=== PATIENT | female | born 1985 | race Caucasian/White ===

== ENCOUNTER 2022-12-03 09:48 | Emergency (ER) | payer SELFPAY ==
[2022-12-03 09:54] VITALS: BP 116/81; PULSE 61; RESP 16; TEMP 36.8; O2SAT 98
--- NOTE | 2022-12-03 10:27 | CRLHL7_ITS ---
For Patients: As a result of the Century Cures Act, medical imaging exams and procedure reports are released immediately into your electronic medical record. You may view this report before your referring provider. If you have questions, please contact your health care provider. Indication: Cough Technique: Chest 1 view Comparison: Chest x-ray 08/06/2016 Findings/Impression: Cardiovascular and mediastinum: Heart size and vasculature are normal in caliber and appearance. Lungs and pleural space: Lungs are clear. No sign of infiltrate or mass. No sign of pleural effusion. No pneumothorax. Bones and soft tissues: No acute findings. Dictated by Juan A Kim MD @ 12/03/2022 11:58:02 AM (Electronically Signed)
[2022-12-03 10:46] LABS: PCR FLU A Negative PCR FLU A (Negative); PCR FLU B Negative PCR FLU B (Negative); PCR RSV Negative PCR RSV (Negative)
[2022-12-03 10:48] LABS: SARS PCR* Negative SARS-CoV-2 (Negative)
[2022-12-03 11:23] VITALS: BP 124/79; PULSE 89; RESP 16; TEMP 36.5; O2SAT 98
--- NOTE | 2022-12-03 12:44 | ED_ITS ---
HPI - General Adult General Date Seen: 12/03/22 Chief complaint: Cough Stated complaint: Cough, chest pain Time Seen by Provider: 12/03/22 10:08 Source: patient History of Present Illness HPI narrative: Patient is a 37-year-old woman who presents for evaluation of sore throat, cough, low-grade fever for the past 1 and half days. Symptoms started Wednesday evening and she took a home COVID test at that time which was negative. She presents to the ER on for evaluation. She has had a sore throat and now she is losing her voice. She has a bad cough, is coughing up some phlegm. She has pain in her chest when she coughs, otherwise does not have chest pain. No pleuritic pain. She feels short of breath after of bad coughing jag but otherwise is not short of breath. She works at a [employer], so she has taken today off, wondering when she should go back to work. She does smoke although she is trying to cut down. Related Data Home Medications Medication Instructions Recorded Confirmed lidocaine 4 %-methyl salicylate 16 patch topical QDAY 07/01/22 08/13/22 %-menthol 2 % topical patch Previous Rx's Medication Instructions Recorded albuterol sulfate 90 mcg/actuation 2 puff inhalation Q6H PRN 07/02/22 aerosol inhaler shortness of breath or wheezing #6.7 grams bupropion HCl 300 mg 24 hr tablet, 300 mg PO QAM #90 tabs 07/02/22 extended release ibuprofen 600 mg tablet 600 mg PO Q8H PRN pain #60 tabs 07/02/22 tizanidine 4 mg capsule 4 mg PO BID PRN muscle spasticity 07/02/22 #30 caps trazodone 100 mg tablet 50 - 150 mg PO .QHS PRN sleep #45 08/03/22 tabs diclofenac sodium 75 mg 75 mg PO BID #180 tabs 08/13/22 tablet,delayed release duloxetine 60 mg capsule,delayed 60 mg PO QDAY #90 caps 08/13/22 release (Cymbalta) Allergies Allergy/AdvReac Type Severity Reaction Status Date / Time zolpidem [From Ambien] Allergy Intermediate Itching Verified 08/13/22 09:11 Review of Systems Status of ROS: Reports: 10 or more systems reviewed and unremarkable except as noted in History and below PFSH PFSH Medical History Alcohol dependence in remission (12/30/18) Anxiety Asthma Borderline personality disorder (11/24/18) Constipation Depression Insomnia Nicotine dependence (12/30/18) Pain of right upper extremity Surgical History History of appendectomy (02/2019) History of tubal ligation (05/2013) Status post laparoscopic hysterectomy (12/2019) Family History Maternal Grandfather Stroke Heart disease Father Heart disease Social History Narrative: single, 2 kids, smoker, social ETOH, [employer]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 In general, an alert, well-appearing patient. Head: Normocephalic, atraumatic. Eyes: Pupils are equal reactive. Extraocular movements are full. Conjunctivae are normal. ENT: Mucous membranes are moist. Throat is normal. Neck: Supple without lymphadenopathy. Heart: Regular rate and rhythm. No murmur or rub. Lungs: Clear bilaterally. No increased work of breathing, crackles or wheezes. Cough is bronchospastic. Extremities: Well perfused. Neurologic: Patient is alert and oriented to person and place. Speech is fluent. Face is symmetric. Moves all extremities equally. Affect: Normal. Skin: Warm and dry. Well perfused. Const: Vital Signs, click to edit/add: Vital Signs - 24 hr 12/03/22 09:54 12/03/22 11:23 Temperature 98.2 F 97.7 F Pulse Rate [Pulse Oximeter] 61 89 Respiratory Rate 16 16 Blood Pressure [Ri ght Upper Arm] 116/81 124/79 Pulse Oximetry 98 98 Oxygen Delivery Me thod Room Air Room Air Documenting provider has reviewed patient's vital signs: yes Course Course Hospital Course: A COVID, flu and influenza swab here was negative. Discussed that that does not entirely rule out COVID as early tests can be false negative. I did a chest x- ray which by my review was negative. Final radiology review is likewise negative. She does have some bronchospasm on exam and I think might benefit fr om prednisone and albuterol. Discussed that I do not see a clear indication here for antibiotics. She would like to stay home from work tomorrow so I have given her note to stay home today and tomorrow. I think as long she is wearing a mask and washing her hands that she could return after that assuming a COVID test does not turn positive in the interim. Return for worsening shortness of breath new symptoms such as fever, or other worsening symptoms. Otherwise, follow up with primary care if no improvement over the next 7-10 days. Vital Signs Vital signs: Initial Vital Signs Temperature 98.2 F 12/03/22 09:54 Temperature Source Temporal Artery Scan 12/03/22 09:54 Pulse Rate 61 12/03/22 09:54 Pulse Rhythm 12/03/22 09:54 Respiratory Rate 16 12/03/22 09:54 Blood Pressure 116/81 12/03/22 09:54 Blood Pressure Mean 92 12/03/22 09:54 Blood Pressure Position Sitting 12/03/22 09:54 Pulse Oximetry 98 12/03/22 09:54 Oxygen Delivery Method 12/03/22 09:54 Vital Signs Temperature 98.2 F 12/03/22 09:54 Pulse Rate 61 12/03/22 09:54 Respiratory Rate 16 12/03/22 09:54 Blood Pressure 116/81 12/03/22 09:54 Pulse Oximetry 98 12/03/22 09:54 Oxygen Delivery Method 12/03/22 09:54 Temperature 97.7 F 12/03/22 11:23 Pulse Rate 89 12/03/22 11:23 Respiratory Rate 16 12/03/22 11:23 Blood Pressure 124/79 12/03/22 11:23 Pulse Oximetry 98 12/03/22 11:23 Oxygen Delivery Method 12/03/22 11:23 Medical Decision Making Lab Data Labs: Lab Results 12/03/22 Range/Units 10:00 SARS-CoV-2 (PCR) Negative SARS-CoV-2 (Negative) Influenza Type A (PCR) Negative PCR FLU A (Negative) Influenza Type B (PCR) Negative PCR FLU B (Negative) RSV (PCR) Negative PCR RSV (Negative) Discharge Plan Discharge Clinical Impression: Bronchitis Patient Disposition: Home, Self-Care Condition: Stable Instructions: Acute Bronchitis (ED) Additional Instructions: Medications as prescribed. Return for worsening shortness of breath, high fevers, or other significant changes. Follow up p.r.n. with primary care if not improving over the next couple of weeks. Minimize smoking as much as possible. Prescriptions: No Action lidocaine-methyl harpal-menthol 4-16-2 % adhesive patch,medicated topical QDAY albuterol sulfate 90 mcg/actuation HFA aerosol inhaler 2 puff inhalation Q6H PRN (Reason: shortness of breath or wheezing) Qty: 6.7 3RF ibuprofen 600 mg tablet 600 mg PO Q8H PRN (Reason: pain) Qty: 60 0RF tizanidine 4 mg capsule 4 mg PO BID PRN (Reason: muscle spasticity) Qty: 30 1RF diclofenac sodium 75 mg tablet,delayed release (DR/EC) 75 mg PO BID Qty: 180 1RF duloxetine [Cymbalta] 60 mg capsule,delayed release(DR/EC) 60 mg PO QDAY Qty: 90 1RF bupropion HCl 300 mg tablet extended release 24 hr 300 mg PO QAM Qty: 90 1RF trazodone 100 mg tablet 50 - 150 mg PO .QHS PRN (Reason: sleep) Qty: 45 0RF Follow Up/Referrals: Jose Angel Glover MD [Primary Care Provider] - Stand Alone Forms: [employer] Info Instructions
== END 2022-12-03 11:25 | disposition home or self-care (01) ==
PROVIDERS: Emergency Provider Emergency Medicine; PCP Family Medicine
DX: J40 Bronchitis, not specified as acute or chronic (principal)
CPT/HCPCS: 71045; 87502; 87634; 87635; 99283; 99284

== ENCOUNTER 2025-01-09 20:30 | Emergency (ER) | payer OTHER, SELFPAY ==
[2025-01-09] VITALS (22 sets, daily range): BP systolic 105–114; BP diastolic 66–81; PULSE 90–120; RESP 20; TEMP 36; O2SAT 97–100
--- OUTSIDE RECORDS SUMMARY | 2025-01-09 20:33 | XMS_ITS | Clinical Summary ---
Author Organization [facility] Address [address] [place] [id number] Care Team Providers Care Job Spotter Name Role Phone Jose Angel Glover MD Primary Care Provider + Allergies Active Allergy Reactions Criticality Noted Date Comments Zolpidem Itching 10/07/2020 Medications acetaminophen (TYLENOL EXTRA STRENGTH) 500 mg tabletIndication s:headache disorder Take 1,000 mg by mouth every 6 hours if needed. Max acetaminophen dose: 4000mg in 24 hrs. Indications: head pain 12/02/19 11 Active levonorgestrel intrauterine device (MIRENA) 20 mcg/24 hr IUD Inject 1 Device intrauterine. 1 Device 0 10/28/19 16 Active ibuprofen (ADVIL; MOTRIN) 200 mg tablet Take 400 mg by mouth 4 times daily if needed. Active FLUoxetine (PROZAC) 40 mg capsule Take 40 mg by mouth once daily. 1 01/01/20 19 Active traMADol (ULTRAM) 50 mg tabletIndication s:Pelvic pain,Lower abdominal pain Take 1 tablet by mouth every 6 hours if needed for Pain. 8 tablet 06/16/20 19 Active codeine-guaiFENe sin (ROBITUSSIN AC) 10-100 mg/5 mL liquidIndication s:Bronchitis Take 10 mL by mouth every 6 hours if needed for Cough. Max dose 60 mL per 24 hrs. 120 mL 09/12/20 19 Active bupropion HCl (WELLBUTRIN ORAL) Take by mouth. Activ e naproxen sodium (ALEVE ORAL) Take by mouth. Ac tive fluticasone (50 mcg per actuation) nasal solution (FLONASE)Indicat ions:Otalgia, unspecified laterality Inhale 1 Leon into affected nostril(s) once daily. 16 g 12/11/19 24 Active ibuprofen (ADVIL; MOTRIN) 600 mg tabletIndication s:Otalgia, unspecified laterality Take 1 Tablet (600 mg) by mouth every 6 hours if needed for Pain. Maximum of 3200 mg in 24 hours. 30 Tablet 12/11/19 24 Active meclizine (ANTIVERT) 25 mg tabletIndication s:Benign paroxysmal positional vertigo, unspecified laterality Take 1 Tablet (25 mg) by mouth 3 times daily if needed for Vertigo or Nausea/Vomiting. 15 Tablet 09/06/20 24 Active Hospital, Clinic, or Other Facility Administered Medication Ordered Dose Route Frequency Start Date End Date Status levonorgestrel intrauterine device 1 Device (MIRENA)Indications:Encounter for IUD removal and reinsertion 1 Device IU Q 5 YEARS 10/28/2015 Active Active Problems Problem Noted Date Diagnosed Date Uterine leiomyoma 04/27/2019 Pelvic pain in female 04/27/2019 Pelvic floor instability 04/27/2019 Acute appendicitis 03/16/2019 Alcohol dependence in remission 12/30/2018 Nicotine dependence 12/30/2018 Borderline personality disorder 11/24/2018 IUD (intrauterine device) in place 10/28/2015 Overview (10/28/2015): cristian, hortencia in 5 yrs Depression 08/02/2015 Anxiety 08/02/2015 Resolved Problems Problem Noted Date Diagnosed Date Resolved Date Presence of intrauterine contraceptive device 10/28/19 16 03/16/2019 Overview (03/16/2019): Overview: Overview: hortencia foster in 5 yrs Pyelonephritis complicating 12/31/2010 05/11/2013 Supervision of other normal 12/31/2010 05/06/2011 Immunizations Immunization Administration Dates Next Due DTP 06/14/1992, 9,05/12/1988,03/23,01/21/1988 HIB PRP-OMP (PedvaxHIB) 07/18/1990,06/29,05/12/1988,03/23,01/21/1988 Hepatitis A (Peds) 06/23/2002,06/02/2000 Hepatitis B (Peds) 02/09/2001,06/02/2000, 000 Hepatitis B, Unspecified 02/09/2001,06/02/2000,0 04/29/2000 INFLUENZA, IIV3 PF (AGE >= 6 MO) 09/22/2011 Influenza Virus, Unspecified 10/08/2015 Influenza, IIV3 (Age >=3 years) 09/22/2011 Influenza, IIV4 07/22/2023,,10/02/2020,06/29,10/08/2015 MENINGOCOCCAL VACCINE 2 VIAL 2MO-55YO (MENVEO) 10/24/2015 MMR 06/14/1992,03/10/1989 Oral Polio Vaccine 06/14/1992, 9,03/23/1988,01/20 Polio Virus, Unspecified 06/14/1992,06/18,03/23/1988,01/20 TD, UNSPECIFIED 06/23/2002 Td (Age >=7 Years) 06/23/2002 Tdap 02/03/2023,03/21/2012 Tuberculin (PPD) 06/10/2016,07/20/1990 Family History Medical History Relation Name Comments Heart Disease Maternal Grandfather Pacema ker Age 71 Other Maternal Grandfather GA Diabetes Maternal Uncle Cancer Paternal Grandfather throat Diabetes Paternal Grandfather Relation Name Status Comments Brother Alive Daughter Alive Father Alive Maternal Grandfather Alive Maternal Grandmother Alive Maternal Uncle Mother Alive Paternal Grandfather Paternal Grandmother Alive Sister Alive x2 Social History Tobacco Use Types Packs/Day Years Used Date Smoking Tobacco: Some Days Cigarettes Last attempted to quit: 08/02/2015 Smokeless Tobacco: Never Tobacco Cessation:Counseling Given: Yes Comments:one pack of cigarettes per month - recently started up again Alcohol Use Standard Drinks/Week Comments No 0 (1 standard drink = 0.6 oz pur e alcohol) Interpersonal Safety Answer Date Record ed Are you being hit, kicked, p ushed or yelled at (see row info)? No 09/06/2024 Interpersonal Safety Abuse 12 - 18 Not on file 09/06/2024 Interpersonal Safety Ambulatory Vulnerability No t on file 09/06/2024 Comments No Sex and Gender Information Value Date Recorded Sex Assigned at Not on file Legal Sex Female 5:45 AM [employer] Gender Identity Not on file Sexual Orientation Not on file Occupation Industry Job Start Date Job End Date home Not on file Not on file Not on file Obstetrics History Para Term AB IAB SAB Ectopic Multiple Livin g Live Births 3 2 2 0 1 0 0 0 0 2 2 Date Outcome GA Total Labor Labor/2nd/3rd Weight Sex Type Anes PTL Dior A1 A5 Name Clin 2005 Term 38w 0d 3.32 kg (7 lb 5 oz) F Vag-V acuum Epidur al N Livin g Jasmyne McInt yre Delivery Location:[facility] 2009 AB 10w 0d 3.15 kg (6 lb 15 oz) M McInt yre Delivery Location:[facility] 2010 Term 38w 1d 3.15 kg (6 lb 15 oz) M Vag Epidur al N Livin g 8 9 Chadwick McInt yre Delivery Location:[facility] Comments:System Genera perri. Please review and update details. Last Filed Vital Signs Vital Sign Reading Time Taken Comments Blood Pressure 114/81 09/06/2024 5:45 AM [employer] Pulse 75 09/06/2024 5:45 AM [employer] Temperature 36.8 C (98.2 F) 09/06/2024 4:03 AM [employer] Respiratory Rate 14 09/06/2024 5:45 AM [employer] Oxygen Saturation 100% 09/06/2024 5:45 AM [employer] Inhaled Oxygen Concentration - - Weight 69.6 kg (153 lb 7 oz) 09/06/2024 4:03 AM [employer] Height 149.9 cm (4' 11) 09/06/2024 4:03 AM [employer] Body Mass Index 30.99 09/06/2024 4:03 AM [employer] Plan of Treatment Health Maintenance Due Date Last Done Comments Hepatitis C screening for ag e 18-79 2005 Pneumococcal series for age 6-49 (1 of 2 - PCV) 2006 Pap test for age 21-65 03/21/2015 2, 05/06/2011, 05/06/2011, Additional history exists BMI (ht and wt on same day) for age 18+ 12/26/2016 12/27/2015, 10/24/2015 Depression screening for age 12+ 07/28/2017 07/28/2016, 01/07/2016, 10/24/2015 COVID-19 vaccine series ( season) 2024 12/04/2020, 11/11/2020 Influenza Vaccine (#1) 2024 , 08/13/2022, 10/02/2020, Additional history exists Tetanus booster 02/03/2033 02/03/2023, 0601/2012, 06/23/2002, Additional history exists HIV for age 15-65 Completed 03/20/2010 Tdap Completed 02/03/2023, 03/21/2012 Procedures Procedure Name Priority Date/Time Associated Diagnosis Comments SUPERVISOR TELEPHONE ANSWERING SERVICE THIN PREP PAP SCREEN IMAGED Routine 03/21/2012 10:58 AM CDT Screening for malignant neoplasm of the cervix ANTI HIV 1/2 Routine 03/20/2010 10:31 AM CDT Supervision of other normal (HC) from Last 3 Months or Most Recently Relevant to Health Maintenance Results * SUPERVISOR TELEPHONE ANSWERING SERVICE THIN PREP PAP SCREEN IMAGED (03/21/2012 10:58 AM CDT) CYTOLOGY CYTOPATHOLOGY REPORT [facility] Status: Final Status [id number] CLINICAL INFORMATION Last Date of LMP :03/16/2012 Last Pap Date :05/06/2011 Last Pap Result :ASCUS ABN [place]/Bx Past 5 YRS :None Hormone Usage :IUD Menstrual Status :Irregular Periods [place]/Bx done today :No Additional Information :None given HPV Request :HPV if ASCUS SPECIMEN SOURCE :Cervical/vaginal ThinPrep Vial, screening SPECIMEN ADEQUACY :Satisfactory for evaluation Endocervical component present. INTERPRETATION/RES ULT Negative for intraepithelial lesion or malignancy (NIL) Cytology 1st Screener :lgb Cytology 2nd Screener :lianet Signed by :lianet This specimen was screened by the FDA approved ThinPrep Imaging System and manually reviewed. NOTE: The Pap test is a screening technique, not a diagnostic procedure. It is used primarily to screen for squamous cancers and precursor lesions. Published studies have shown that it is subject to both false negative and false positive results. The pap test should not be used as the sole means to diagnose or exclude pre-malignant and malignant lesions. COLLECTED:03/21/12 ACCESSIONED: 03/21/12 SIGNED: 03/28/12 [facility] PAP [place] CODE NIL [facility] Tissue specimen (specimen) (Cervical/Vagina l) 03/21/2012 10:58 AM CDT 03/21/2012 10:57 AM CDT us Jennifer Elias NP PATHOLOGY/CYTOLOGY Final Result [facility] INTERNAL ZIP [id number] [place] [id number] * ANTI HIV 1/2 (03/20/2010 10:31 AM CDT) ANTI HIV 1/2 Non-reacti ve [facility] Blood specimen (specimen) BLOOD SPECIMEN / Unknown 03/20/2010 10:31 AM CDT 03/20/2010 10:17 AM CDT us Jose Angel Glover MD SEND OUTS Final Re sult [facility] INTERNAL ZIP [id number] [address] from Last 3 Months or Most Recently Relevant to Health [place] [address] [employer] Advance Directives * Full Code (Latest Code Status on File) Date Activated Date Inactivated Comments 03/16/2019 2:06 PM 03/16/2019 8:15 PM Question Answer Comments Code Status Discussion: Not Discussed * Full Code Date Activated Date Inactivated Comments 02/22/2011 9:02 PM 02/22/2011 11:38 PM * Full Code Date Activated Date Inactivated Comments 12/30/2010 8:58 PM 01/01/2011 12:27 PM * Full Code Date Activated Date Inactivated Comments 12/02/2010 10:27 PM 12/03/2010 1:59 AM Care Teams Job Spotter Relationship Specialty Start Date End Date Jose Angel Glover MD [address] [place] [address] PCP - General Family Practice 10/07/20
--- NOTE | 2025-01-09 20:45 | ED_ITS ---
HPI - Syncope General Time Seen by Provider: 20:46 Date Seen: 01/09/25 Chief Complaint: Syncope/Fainted Stated Complaint: Passed out in shower Time Seen by Provider: 01/09/25 20:34 Source: patient, RN notes reviewed and old records reviewed Mode of arrival: ambulatory Limitations: no limitations History of Present Illness HPI narrative: This 39-year-old female is ambulatory into the ED of her own accord with complaint of syncope in the shower tonight, does have underlying vomiting illness. For about 24 hours she has been vomiting, has vomited at least 4 times. She has had a normal bowel movement in this time frame, no fevers or chills, no diarrhea, no blood in the vomitus. She states she has been trying to drink water, tried eat crackers, cannot keep anything down. She went to get into a hot shower tonight, started to see stars or spots, somewhat fell back on the wall of the shower and went down the shower wall. At mo she may have bumped her head but does not have any head pain, no headache. She was maybe out shortly, denies any injury. She is not having any abdominal pain with this. She works at [employer], there have been about 15 residence on quarantine with presumed norovirus like illness with these types of symptoms. No chance for as patient has had both history of a tubal ligation and then subsequent laparoscopic hysterectomy. She has also had a history of an appendectomy. She noted when she was doing some dry heaving in the shower, felt some burning chest heaviness with that but has no chest symptoms now. Related Data Previous Rx's ?Medication ?Instructions ?Recorded tizanidine 4 mg capsule 4 mg PO BID PRN muscle spasticity 10/04/23 #30 caps trazodone 100 mg tablet 50 - 150 mg (0.5 - 1.5 x 100 mg) 11/11/23 PO QHS PRN sleep #45 tabs bupropion HCl 150 mg 24 hr tablet, 150 mg PO QAM #90 tabs 06/16/24 extended release (Wellbutrin XL) duloxetine 30 mg capsule,delayed 30 mg PO QDAY #90 caps 06/16/24 release (Cymbalta) duloxetine 60 mg capsule,delayed 60 mg PO QDAY #90 caps 06/16/24 release (Cymbalta) lorazepam 1 mg tablet 0.5 - 1 mg (0.5 - 1 x 1 mg) PO 06/16/24 QDAY PRN anxiety #30 tabs albuterol sulfate 90 mcg/actuation 2 puff inhalation Q4-6H PRN 11/09/24 aerosol inhaler shortness of breath or wheezing #6.7 grams Allergies Allergy/AdvReac Type Severity Reaction Status Date / Time zolpidem (From Ambien) Allergy Intermediate Itching Verified 01/09/25 20:44 Review of Systems Status of ROS: Reports: 6 or more systems reviewed and unremarkable except as noted in History and below [facility] Medical History Generalized anxiety disorder ?F41.1 - Generalized anxiety disorder (ICD-10) Major depression, recurrent ?F33.9 - Major depressive disorder, recurrent, unspecified (ICD-10) Asthma ?J45.909 - Unspecified asthma, uncomplicated (ICD-10) Nicotine dependence (12/30/18) ?F17.200 - Nicotine dependence, unspecified, uncomplicated (ICD-10) Insomnia ?G47.00 - Insomnia, unspecified (ICD-10) Constipation ?K59.00 - Constipation, unspecified (ICD-10) Borderline personality disorder (11/24/18) ?F60.3 - Borderline personality disorder (ICD-10) Alcohol dependence in remission (12/30/18) ?F10.21 - Alcohol dependence, in remission (ICD-10) Surgical History Status post laparoscopic hysterectomy (12/2019) ?Z90.710 - Acquired absence of both cervix and uterus (ICD-10) History of tubal ligation (05/2013) ?Z98.51 - Tubal ligation status (ICD-10) History of appendectomy (02/2019) ?Z90.49 - Acquired absence of other specified parts of digestive tract (ICD- 10) Family History Maternal Grandfather Stroke Heart disease Father Heart disease Social History Narrative: single, 2 kids, smoker, social ETOH, PATIENT ACCOUNTING REPRESENTATIVE Problems where you live: no known problems In the past 12 months, utilities in danger of being shut off: yes In past 12 months, lack of transportation kept you from medical appts, meetings, work, or getting things needed for daily living: no In the past 12 mos, have been you worried that your food would run out before you had money to buy more?: often true In the past 12 mos, the food you bought just didn't last and you didn't have money to buy more?: sometimes true Smoking Status: Never smoker Do you use any of these nicotine containing products: None Second hand tobacco smoke exposure: No How often do you have a drink containing alcohol: never How often do you have six or more drinks on one occasion: Never AUDIT-C Alcohol total score: 0 Non-prescribed substance use: denies use How often does anyone, including family, friends and others, physically hurt you : never How often does anyone, including family, friends and others, insult or talk down to you: sometimes How often does anyone, including family, friends and others, threaten you with harm: never How often does anyone, including family, friends and others, scream or curse at you: rarely service: No Health Related Social Needs: food insecurity (Z59.41) and Other personal risk factors, not elsewhere classified (Z91.89) Exam Const: Vital Signs, click to edit/add: Vital Signs - 24 hr 01/09/25 20:38 01/09/25 21:11 01/09/25 21:12 Temperature 96.8 F L Pulse Rate 103 H 102 H Pulse Rate [Pulse Oximeter] 120 H Respiratory Rate 20 Blood Pressure 109/76 Blood Pressure [Ri ght Upper Arm] 114/81 Pulse Oximetry 98 98 97 Oxygen Delivery Me thod Room Air 01/09/25 21:15 01/09/25 21:16 01/09/25 21:30 Temperature Pulse Rate 99 100 104 H Pulse Rate [Pulse Oximeter] Respiratory Rate Blood Pressure 111/79 Blood Pressure [Ri ght Upper Arm] Pulse Oximetry 98 97 99 Oxygen Delivery Me thod 01/09/25 21:31 01/09/25 21:32 01/09/25 21:45 Temperature Pulse Rate 106 H 101 H 100 Pulse Rate [Pulse Oximeter] Respiratory Rate Blood Pressure 108/74 Blood Pressure [Ri ght Upper Arm] Pulse Oximetry 99 99 100 Oxygen Delivery Me thod 01/09/25 21:47 01/09/25 22:00 01/09/25 22:02 Temperature Pulse Rate 95 102 H 101 H Pulse Rate [Pulse Oximeter] Respiratory Rate Blood Pressure 112/66 109/81 Blood Pressure [Ri ght Upper Arm] Pulse Oximetry 99 99 99 Oxygen Delivery Me thod 01/09/25 22:03 01/09/25 22:15 01/09/25 22:16 Temperature Pulse Rate 101 H 95 94 Pulse Rate [Pulse Oximeter] Respiratory Rate Blood Pressure 105/70 Blood Pressure [Ri ght Upper Arm] Pulse Oximetry 99 100 100 Oxygen Delivery Me thod 01/09/25 22:30 01/09/25 22:31 01/09/25 22:45 Temperature Pulse Rate 93 92 94 Pulse Rate [Pulse Oximeter] Respiratory Rate Blood Pressure 105/66 Blood Pressure [Ri ght Upper Arm] Pulse Oximetry 100 100 98 Oxygen Delivery Me thod 01/09/25 22:49 01/09/25 23:00 Temperature Pulse Rate 101 H 90 Pulse Rate [Pulse Oximeter] Respiratory Rate Blood Pressure Blood Pressure [Ri ght Upper Arm] Pulse Oximetry 100 100 Oxygen Delivery Me thod This 39-year-old female is alert, interactive, no apparent distress. She did ambulate in on her own accord, she is tachycardic on arrival but after resting in bed her EKG shows a rate of 104. She looks pale but sclera clear come conjugate gaze. Oropharynx somewhat dry but lips normal, not cracked. No tenderness over her head, no visible or palpable traumatic change. Neck supple, no tenderness on palpation. No JVD. Lungs are clear, good air entry, no wheezing or crackles, no tachypnea, no accessory muscle use. CV slightly fast irregular, no murmur, normal S1-S2, no S3-S4. Abdomen is soft, nontender, nondistended, no organomegaly, rebound or guarding, normal bowel sounds. Skin visualized without rash. Documenting provider has reviewed patient's vital signs: yes Course Course ED Course: This 39-year-old female very likely had vasovagal syncope, history seems quite consistent with that. She likely has dehydration from having probable viral gastroenteritis. Will check baseline labs, give her L of IV fluids, give her 4 mg IV Zofran. Will have cardiac monitoring, pulse oximetry, EKG and point of care troponin done. There are no injuries at this time that seem to require any imaging. Do not feel head CT is necessary nor indicated, believe the radiation of this test outweighs any benefit that it would give us. Her history just seems to be so classic with vasovagal syncope with underlying gastroenteritis. Reevaluation(s) Time of Reevaluation #1: 21:57 Reevaluation #1: Patient is feeling a little better. Did review with her her normal initial point of care troponin, CBC and electrolytes. This episode in the shower happened about 7:30 p.m. tonight. Will do a follow-up troponin at 10:30 p.m.. Did review she has some nonspecific changes on her EKG. She is having no symptoms at this time. Would recommend that she talk to her primary care about this further. If her heart rate does come down, we may consider repeating the EKG to see if there is any rate dependence changes. Time of Reevaluation #2: 23:13 Reevaluation #2: Have reviewed patient's EKGs with her. The slower rate followup EKG has resolution of some of the T-wave changes. She maybe somebody that has rate dependent changes, I would not say this is definitively indicative of ischemia. Her follow-up troponin remained normal. She can review this further with her primary care provider which I have recommended she do. She actually does have anti nausea medicine at home but had forgot about it, declines Zofran from me. Vital Signs Vital signs: Initial Vital Signs Temperature 96.8 F L 01/09/25 20:38 Temperature Source Temporal Artery Scan 01/09/25 20:38 Pulse Rate 120 H 01/09/25 20:38 Respiratory Rate 20 01/09/25 20:38 Blood Pressure 114/81 01/09/25 20:38 Blood Pressure Mean 92 01/09/25 20:38 Pulse Oximetry 98 01/09/25 20:38 Oxygen Delivery Method Room Air 01/09/25 20:38 Vital Signs Temperature 96.8 F L 01/09/25 20:38 Pulse Rate 120 H 01/09/25 20:38 Respiratory Rate 20 01/09/25 20:38 Blood Pressure 114/81 01/09/25 20:38 Pulse Oximetry 98 01/09/25 20:38 Oxygen Delivery Method Room Air 01/09/25 20:38 Temperature 96.8 F L 01/09/25 20:38 Pulse Rate 90 01/09/25 23:00 Respiratory Rate 20 01/09/25 20:38 Blood Pressure 105/66 01/09/25 22:31 Pulse Oximetry 100 01/09/25 23:00 Oxygen Delivery Method Room Air 01/09/25 20:38 Medications Administered Medications: Discontinued Medications Generic Name Dose Route Start Last Admin Trade Name Freq PRN Reason Stop Dose Admin Sodium Chloride 1,000 mls @ 1,000 mls/hr 01/09/25 20:52 01/09/25 22:09 0.9 % Sodium Chloride 1000 Ml IV 01/09/25 21:51 Infused .Q1H TRUPTI Infusion Sodium Chloride 1,000 mls @ 1,000 mls/hr 01/09/25 22:00 01/09/25 22:12 0.9 % Sodium Chloride 1000 Ml IV 01/09/25 22:59 1,000 mls/hr .Q1H TRUPTI Administration Ondansetron HCl 4 mg 01/09/25 20:52 01/09/25 21:05 Ondansetron 2 Mg/Ml Inj IVP 01/09/25 20:53 4 mg ONCE ONE Administration MDM - Syncope Lab Data Attestation: I reviewed the patient's lab results. Labs: Lab Results 01/09/25 01/09/25 01/09/25 Range/Units 20:55 20:58 22:30 WBC 9.17 (4.50-11.00) K/uL RBC 4.87 (4.00-5.20) m/uL Hgb 14.9 (12.0-16.0) gm/dL Hct 43.1 (33.0-51.0) % MCV 89 (80-100) fL MCH 31 (26-34) pg MCHC 35 (32-36) gm/dL RDW Coeff of Leonor 11.8 (11.5-15.5) % Plt Count 253 (140-440) K/uL Neut % (Auto) 87.2 H (42.0-72.0) % Lymph % (Auto) 7.1 L (20-44) % [place] % (Auto) 3.9 (0.0-11.0) % Eos % (Auto) 0.8 (0.0-7.0) % Baso % (Auto) 0.1 (0.0-3.0) % Neut # (Auto) 8.00 H (1.7-7.0) K/uL Lymph # (Auto) 0.70 L (0.90-2.90) K/uL [place] # (Auto) 0.40 (0.00-0.90) K/UL Eos # (Auto) 0.07 (0.00-0.50) K/uL Baso # (Auto) 0.01 (0.00-0.30) K/uL Abs Immat Gran (auto) 0.08 (0.00-0.30) K/uL Imm/Tot Granulo (auto) 0.9 % Sodium 138 (135-149) mmol/L Potassium 3.7 (3.6-5.1) mmol/L Chloride 107 (96-114) mmol/L Carbon Dioxide 21 (20-32) mmol/L Anion Gap 10 (7-15) mEq/L BUN 17 (5-24) mg/dL Creatinine 0.6 (0.5-1.5) mg/dL Estimated GFR 118 ml/min Glucose 97 (60-115) mg/dL Lactate 0.9 (0.5-1.9) mmol/L Calcium 9.0 (8.4-10.6) mg/dL POC Troponin I 0.01 0.00 L (0.01-0.04) ng/ml ECG Data Attestation: I personally reviewed and interpreted this ECG as follows: (Sinus tachycardia, 104 beats per minute. Flipped T-waves V1 through V5 without any ST segment changes, flipped T-waves lead 3 as well.) ECG interpretation date: 01/09/25 ECG interpretation time: 20:56 Prior ECG tracings: not available for review Interpretation: Follow-up EKG at 10:25 p.m. showing sinus rhythm with sinus arrhythmia, 91 beats per minute. Flattened T-wave in lead 3, flipped T-waves in V1 V2 but no other T-wave abnormalities noted. There is certainly no ST segment changes. Seems to have shown great improvement with the EKG. Discharge Plan Discharge Clinical Impression: Vasovagal syncope, Viral gastroenteritis Patient Disposition: Home, Self-Care Condition: Stable Instructions: Syncope (ED), Gastroenteritis (ED) Additional Instructions: Use your nausea medicines at home as needed for control of these symptoms to allow you to take small frequent sips of fluids. As you are improving, can return back to normal diet. Do recommend staying out of work until you are not ill for 24 hours. If at any point there are concerns for worsening, not improving, new concerns with this illness, do recommend re-evaluation. Do recommend you follow-up in clinic within the next 1-2 weeks for review of this ED visit with your primary care provider. Activity Level: Activity as Tolerated Prescriptions: No Action trazodone 100 mg tablet 50 - 150 mg PO QHS PRN (Reason: sleep) Qty: 45 5RF bupropion HCl [Wellbutrin XL] 150 mg tablet extended release 24 hr 150 mg PO QAM Qty: 90 1RF duloxetine [Cymbalta] 30 mg capsule,delayed release(DR/EC) 30 mg PO QDAY Qty: 90 1RF duloxetine [Cymbalta] 60 mg capsule,delayed release(DR/EC) 60 mg PO QDAY Qty: 90 1RF lorazepam 1 mg tablet 0.5 - 1 mg PO QDAY PRN (Reason: anxiety) Qty: 30 1RF albuterol sulfate 90 mcg/actuation HFA aerosol inhaler 2 puff inhalation Q4-6H PRN (Reason: shortness of breath or wheezing) Qty: 6.7 0RF tizanidine 4 mg capsule 4 mg PO BID PRN (Reason: muscle spasticity) Qty: 30 1RF Follow Up/Referrals: Jose Angel Glover MD [Primary Care Provider] - Stand Alone Forms: Work/School Release, [facility] Info Instructions
[2025-01-09 21:04] LABS: Lactate* 0.9 mmol/L (0.5-1.9)
[2025-01-09 21:05] LABS: Basophils Absolute Auto 0.01 K/uL (0.00-0.30); Basophils Percent Auto 0.1 % (0.0-3.0); Eosinophils Absolute Auto 0.07 K/uL (0.00-0.50); Eosinophils Percent Auto 0.8 % (0.0-7.0); Hematocrit 43.1 % (33.0-51.0); Hemoglobin* 14.9 gm/dL (12.0-16.0); Immature Granulocytes Abs Auto 0.08 K/uL (0.00-0.30); Immature Granulocytes Pct Auto 0.9 %; Lymphocytes Percent Auto 7.1 % (20-44); Mean Corpuscular HGB Conc 35 gm/dL (32-36); Mean Corpuscular Hemoglobin 31 pg (26-34); Mean Corpuscular Volume 89 fL (80-100); Monocytes Percent Auto 3.9 % (0.0-11.0); Neutrophils Percent Auto 87.2 % (42.0-72.0); Platelet Count* 253 K/uL (140-440); RDW Coefficient of Variation % 11.8 % (11.5-15.5); Red Blood Count 4.87 m/uL (4.00-5.20); White Blood Count* 9.17 K/uL (4.50-11.00)
[2025-01-09] MEDS: 0.9 % SODIUM CHLORIDE 1000 ml 1,000 ML IV ×2 (21:05→22:12)
[2025-01-09] MEDS: ONDANSETRON 2 MG/ML inj 4 MG IVP (21:05)
--- OUTSIDE RECORDS SUMMARY | 2025-01-09 21:15 | XMS_ITS | Clinical Summary ---
Author Organization [employer] [facility] Address [address] [place] [address] Care Team Providers Care Wire Wrapping Machine Operator Name Role Phone Jose Angel Glover MD [...] solution (FLONASE)Indicat ions:Otalgia, unspecified laterality Inhale 1 [place] into affected nostril(s) once daily. 16 g [...] Pacema ker Age 73 Other Maternal Grandfather [place] Diabetes Maternal Uncle Cancer Paternal Grandfather throat [...] on file Legal Sex Female 5:45 AM LMFT Gender Identity Not on file Sexual Orientation [...] N Livin g Jasmyne McInt yre Delivery Location:[facility] 2009 AB 10w 0d 3.15 kg (6 lb 15 oz) M McInt yre Delivery Location:[facility] 2010 Term 38w 1d 3.15 kg (6 lb 15 oz) M Vag Epidur al N Livin g 8 9 [place] McInt yre Delivery Location:[facility] Comments:System Genera perri. Please review and update details. Last Filed Vital Signs Vital Sign Reading Time Taken Comments Blood Pressure 114/81 09/06/2024 5:45 AM LMFT Pulse 75 09/06/2024 5:45 AM LMFT Temperature 36.8 C (98.2 F) 09/06/2024 4:03 AM LMFT Respiratory Rate 14 09/06/2024 5:45 AM LMFT Oxygen Saturation 100% 09/06/2024 5:45 AM LMFT Inhaled Oxygen Concentration - - Weight 69.6 kg (153 lb 7 oz) 09/06/2024 4:03 AM LMFT Height 149.9 cm (4' 11) 09/06/2024 4:03 AM LMFT Body Mass Index 30.99 09/06/2024 4:03 AM LMFT Plan of Treatment Health Maintenance Due Date [...] Procedure Name Priority Date/Time Associated Diagnosis Comments DIRECTOR OF CONVENTION SERVICES THIN PREP PAP SCREEN IMAGED Routine 03/21/2012 10:58 AM CDT Screening for malignant neoplasm of the cervix ANTI HIV 1/2 Routine 03/20/2010 10:31 AM CDT Supervision of other normal (HC) from Last 3 Months or Most Recently Relevant to Health Maintenance Results * DIRECTOR OF CONVENTION SERVICES THIN PREP PAP SCREEN IMAGED (03/21/2012 10:58 AM CDT) CYTOLOGY CYTOPATHOLOGY REPORT [facility] Status: Final Status [id number] CLINICAL INFORMATION Last Date of LMP :03/16/2012 Last Pap Date :05/06/2011 Last Pap Result :ASCUS ABN [place]/Bx Past 5 YRS :None Hormone Usage :IUD Menstrual Status :Irregular Periods [place]/Bx done today :No Additional Information :None given [...] malignant lesions. COLLECTED:03/21/12 ACCESSIONED: 03/21/12 SIGNED: 03/28/12 [facility] PAP [place] CODE NIL [facility] Tissue specimen (specimen) (Cervical/Vagina l) 03/21/2012 10:58 AM CDT 03/21/2012 10:57 AM CDT us Jennifer Elias NP PATHOLOGY/CYTOLOGY Final Result [facility] [place] ZIP [id number] [place] [id number] * ANTI HIV 1/2 (03/20/2010 10:31 AM CDT) ANTI HIV 1/2 Non-reacti ve [facility] Blood specimen (specimen) BLOOD SPECIMEN / Unknown 03/20/2010 10:31 AM CDT 03/20/2010 10:17 AM CDT us Jose Angel Glover MD SEND OUTS Final Re sult [facility] INTERNAL ZIP [id number] [address] from Last 3 Months or Most Recently Relevant to Health [place] [address] [employer] Advance Directives * Full Code (Latest [...] 10:27 PM 12/03/2010 1:59 AM Care Teams Wire Wrapping Machine Operator Relationship Specialty Start Date End Date Jose Angel Glover MD [address] [place] [address] PCP - General Family Practice 10/07/20
[2025-01-09 21:19] LABS: Chloride* 107 mmol/L (96-114); Sodium* 138 mmol/L (135-149)
[2025-01-09 21:20] LABS: Potassium* 3.7 mmol/L (3.6-5.1)
[2025-01-09 21:21] LABS: Troponin, Point-of-Care* 0.01 ng/ml (0.01-0.04)
[2025-01-09 21:22] LABS: Blood Urea Nitrogen* 17 mg/dL (5-24); Creatinine* 0.6 mg/dL (0.5-1.5); Estimated Glomerular Filt Rate 118 ml/min
[2025-01-09 21:23] LABS: Anion Gap 10 mEq/L (7-15); Carbon Dioxide* 21 mmol/L (20-32); Glucose* 97 mg/dL (60-115)
[2025-01-09 21:44] LABS: Slide Review Reflex No
== END 2025-01-09 23:26 | disposition home or self-care (01) ==
PROVIDERS: Emergency Provider Family Medicine; PCP Family Medicine
DX: R55 Syncope and collapse (principal); K52.9 Noninfective gastroenteritis and colitis, unspecified
CPT/HCPCS: 36415; 80048; 83605; 84484; 85025; 96374; 99284; J2405; J7030

== ENCOUNTER 2025-05-27 17:30 | Emergency (ER) | payer OTHER, SELFPAY ==
--- OUTSIDE RECORDS SUMMARY | 2025-05-27 17:32 | XMS_ITS | Clinical Summary ---
Author Organization [employer] [facility] Address [address] [place] [id number] Care Team Providers Care Workers Compensation Claims Examiner Name Role Phone Jose Angel Glover MD [...] solution (FLONASE)Indicat ions:Otalgia, unspecified laterality Inhale 1 [place] into affected nostril(s) once daily. 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 Please review and update details. Last Filed Vital Signs Vital Sign Reading Time Taken Comments Blood Pressure 114/81 09/06/2024 5:45 AM MAILS SUPERVISOR Pulse 75 09/06/2024 5:45 AM MAILS SUPERVISOR Temperature 36.8 C (98.2 F) 09/06/2024 4:03 AM MAILS SUPERVISOR Respiratory Rate 14 09/06/2024 5:45 AM MAILS SUPERVISOR Oxygen Saturation 100% 09/06/2024 5:45 AM MAILS SUPERVISOR Inhaled Oxygen Concentration - - Weight 69.6 kg (153 lb 7 oz) 09/06/2024 4:03 AM MAILS SUPERVISOR Height 149.9 cm (4' 11) 09/06/2024 4:03 AM MAILS SUPERVISOR Body Mass Index 30.99 09/06/2024 4:03 AM MAILS SUPERVISOR Plan of Treatment Health Maintenance Due Date [...] season) 2024 12/04/2020, 11/11/2020 Influenza Vaccine (#1) 2025 , 08/13/2022, 10/02/2020, Additional history exists Tetanus booster 02/03/2033 02/03/2023, 0601/2012, 06/23/2002, Additional history exists Hepatitis B series for 19+ Completed 02/09, 02/09/2001, 06/02/2000, Additional history exists HIV for age 15-65 Completed 03/20/2010 Procedures Procedure Name Priority Date/Time Associated Diagnosis Comments DIRECTOR OF GROUP SALES THIN PREP PAP SCREEN IMAGED Routine 03/21/2012 10:58 AM CDT Screening for malignant neoplasm of the cervix ANTI HIV 1/2 Routine 03/20/2010 10:31 AM CDT Supervision of other normal (HC) from Last 3 Months or Most Recently Relevant to Health Maintenance Results * DIRECTOR OF GROUP SALES THIN PREP PAP SCREEN IMAGED (03/21/2012 10:58 AM CDT) CYTOLOGY CYTOPATHOLOGY REPORT [facility] Status: Final Status [id number] CLINICAL INFORMATION Last Date of LMP :03/16/2012 Last Pap Date :05/06/2011 Last Pap Result :ASCUS ABN [place]/Bx Past 5 YRS :None Hormone Usage :IUD Menstrual Status :Irregular Periods [place]/Bx done today :No Additional Information :None given [...] malignant lesions. COLLECTED:03/21/12 ACCESSIONED: 03/21/12 SIGNED: 03/28/12 [facility] PAP [place] CODE NIL [facility] Tissue specimen (specimen) (Cervical/Vagina l) 03/21/2012 10:58 AM CDT 03/21/2012 10:57 AM CDT us Jennifer Elias NP PATHOLOGY/CYTOLOGY Final Result [facility] INTERNAL ZIP [id number] [place] [id number] * ANTI HIV 1/2 (03/20/2010 10:31 AM CDT) ANTI HIV 1/2 Non-reacti ve [facility] Blood specimen (specimen) BLOOD SPECIMEN / Unknown 03/20/2010 10:31 AM CDT 03/20/2010 10:17 AM CDT us Jose Angel Glover MD SEND OUTS Final Re sult [facility] INTERNAL ZIP [id number] [address] from Last 3 Months or Most Recently Relevant to Health Maintenance Insurance [id number] [address] [place] [address] [employer] [phone] [address] * Guarantor: [facility] Account Type Relation to Patient Date of Phone Billing Address [facility] Employer [address] [place] [address] Advance Directives * Full Code (Latest Code [...] 10:27 PM 12/03/2010 1:59 AM Care Teams Workers Compensation Claims Examiner Relationship Specialty Start Date End Date Jose Angel Glover MD [address] [place] [address] [place] [address] PCP - General Family Practice 10/07/20
--- OUTSIDE RECORDS SUMMARY | 2025-05-27 17:32 | XMS_ITS | Continuity of Care Document ---
Author Name [facility] Organization [facility] Care Team Providers Care Porcelain Enameler Name Role Phone [facility] Unavailable Unavailable Problems Combined list of problems from Department of Defense and Veterans Affairs facilities. It does not include entries that were removed or entered in error. Problem Status Onset Date Problem Type Date of Resolution Comments Source URINARY TRACT INFECTION Inactive Condition [facility] vaginal itching or burning Active Condition [facility] vaginal discharge Inactive Condition [facility] visit for: administrative purpose Inactive Condition [facility] Allergies, Adverse Reactions, Alerts Combined list of allergies from Department of Defense and Veterans Affairs facilities. It does not include entries that were removed or entered in error. Substance Category Reaction Severity Reaction type Status Date Reported Comments Source No Known Allergies Drug allergy (disorder) active 01/16/2014 [facility] Kristin Maxwell [place] Encounters Combined list of: 1) Encounters from Department of Veterans Affairs facilities going backup to the last 18 months, not all [place] inpatient encounters are included; 2) Encounters from the Department of Defense facilities going backup to 280 months. Location Location Details Encounter Type Encounter Number Reason For Visit Attending Provider ADM Date DC Date Status Disposition Source [facility] Donato Maxwell [place]([facility] TELE CONSULT [id number] Notes Entered by: PAOLO LOYD 26 Dec 2013 0904 ------- ------- ------- ------- -- PCM Thong/ ashish l schuyler bella in private area BRYNN SHIELDS 12/26 [facility] for [facility] [place] [place] [facility] [place] [place] TELE CONSULT [id number] Notes Entered by: MECCA SKY 16 Jan 2014 1133 ------- ------- ------- ------- -- PCM Mr Benito - patient has vaginal odor, dischar ge - no appts left in clinic ISAIAH MENENDEZ 01/16 Referred for Appointment [place]([facility] F01A Red) [place] F01A Red) OUTPATIENT [id number] VAGINAL IRRITAT ION RUTH JIN O 01/18 Released w/o Limitations [place] [place] [place] TELE CONSULT [id number] Notes Entered by: Marcelina JIN 19 Jan 2014 0825 ------- ------- ------- ------- -- Lab Results RUTH JIN Cathleen 01/19 [place] [place] F01A Red) TELE CONSULT [id number] Notes Entered by: ISABEL WATTS 04 Apr 2014 1405 ------- ------- ------- ------- -- chanel benito patient has back pain abdnohemi,raciel pain ear pain was numb SYLVIA JINSHMUEL O 04/04 [place] F01A Red) TELE CONSULT [id number] Notes Entered by: MECCA SKY 05 Apr 2014 0757 ------- ------- ------- ------- -- PCM Mr benito - patient is suppose d to have FU from [facility] 04 April-no appts [facility] 04/05 Referred for Appointment [place] [place] Procedures Combined list of: 1) Procedures from Department of Veterans Affairs facilities going back up to thelast 18 months, not all [place] non-surgical procedures are included; 2) All procedures from the Department of Defense facilities. Procedure Procedure Type Code Date Perfomer Comments Sourc e TELE ASSESS & MGT SRV PROV QUAL NONPHYS HLTH CARE PRO TO EST PAT,PARENT,GUARD NOT ORIG REL ASSESS & MGT SRV PROV W/IN PREV 7 DAYS NOR LEAD ASSESS & MGT SRV/PX W/IN NXT 24 HR/SOON APT;5-10 MIN MED DIS 04/05/2014 [facility] TELE ASSESS & MGT SRV PROV QUAL NONPHYS HLTH CARE PRO TO EST PAT,PARENT,GUARD NOT ORIG REL ASSESS & MGT SRV PROV W/IN PREV 7 DAYS NOR LEAD ASSESS & MGT SRV/PX W/IN NXT 24H/SOON APT; 11-20 MIN MED DIS 04/04/2014 [facility] TELE ASSESS & MGT SRV PROV QUAL NONPHYS HLTH CARE PRO TO EST PAT,PARENT,GUARD NOT ORIG REL ASSESS & MGT SRV PROV W/IN PREV 7 DAYS NOR LEAD ASSESS & MGT SRV/PX W/IN NXT 24H/SOON APT; 11-20 MIN MED DIS 01/16/2014 [facility] Non-Physician Phone Call To Patient/Provider Brief (5-10min) Non-Physician Phone Call To Patient/Provider Brief (5-10min) [id number] 04/05/2014 [facility] Non-Physician Phone Call To Pt/Provider Intermed (11-20 min) Non-Physician Phone Call To Pt/Provider Intermed (11-20 min) [id number] 04/04/2014 [facility] Non-Physician Phone Call To Pt/Provider Intermed (11-20 min) Non-Physician Phone Call To Pt/Provider Intermed (11-20 min) [id number] 01/16/2014 ISAIAH MENENDEZ [facility] Social History Combined list of available smoking, tobacco, and other social history from Department of Defense and Veterans Affairs facilities. Social History Type Response Date Comment Sourc e This section is an empty social history section. [facility]
--- OUTSIDE RECORDS SUMMARY | 2025-05-27 17:32 | XMS_ITS | Continuity of Care Document ---
Author Name [facility] Organization [facility] Care Team Providers Care Director Of Vocational Guidance Name Role Phone [facility] Unavailable Unavailable Problems Combined list of problems from Department of Defense and Veterans Affairs facilities. It does not include entries that were removed or entered in error. Problem Status Onset Date Problem Type Date of Resolution Comments Source URINARY TRACT INFECTION Inactive Condition [facility] vaginal itching or burning Active Condition [facility] vaginal discharge Inactive Condition [facility] visit for: administrative purpose Inactive Condition [facility] Allergies, Adverse Reactions, Alerts Combined list of allergies from Department of Defense and Veterans Affairs facilities. It does not include entries that were removed or entered in error. Substance Category Reaction Severity Reaction type Status Date Reported Comments Source No Known Allergies Drug allergy (disorder) active 01/16/2014 [facility] Kristin Maxwell [place] Encounters Combined list of: 1) Encounters from Department of Veterans Affairs facilities going backup to the last 18 months, not all [place] inpatient encounters are included; 2) Encounters from the Department of Defense facilities going backup to 280 months. Location Location Details Encounter Type Encounter Number Reason For Visit Attending Provider ADM Date DC Date Status Disposition Source [facility] Donato Maxwell [place] TELE CONSULT [id number] Notes Entered by: PAOLO LOYD 26 Dec 2013 0904 ------- ------- ------- ------- -- PCM Thong/ ashish l schuyler bella in private area BRYNN SHIELDS 12/26 [facility] App[facility] [place] [place] [facility] [place] TELE CONSULT [id number] Notes Entered by: MECCA SKY 16 Jan 2014 1133 ------- ------- ------- ------- -- PCM Mr Benito - patient has vaginal odor, dischar ge - no appts left in clinic ISAIAH MENENDEZ 01/16 Referred for Appointment [place] F01A Red[place] [place] OUTPATIENT [id number] VAGINAL IRRITAT ION RUTH JIN O 01/18 Released w/o Limitations [place] [place] [place] TELE CONSULT [id number] Notes Entered by: Marcelina JIN 19 Jan 2014 0825 ------- ------- ------- ------- -- Lab Results [facility] JIN Cathleen 01/19 [place] [place] TELE CONSULT [id number] Notes Entered by: ISABEL WATTS 04 Apr 2014 1405 ------- ------- ------- ------- -- chanel benito patient has back pain abdnohemi,raciel pain ear pain was numb SYLVIA JINSHMUEL O 04/04 [place] [place] [place] TELE CONSULT [id number] Notes Entered by: MECCA SKY 05 Apr 2014 0757 ------- ------- ------- ------- -- PCM Mr benito - patient is suppose d to have FU from [facility] ER 04 April-no appts [facility] 04/05 Referred for Appointment [place] [place] Procedures Combined list of: [...] Non-Physician Phone Call To Patient/Provider Brief (5-10min) [id number] 04/05/2014 [facility] Non-Physician Phone Call To Pt/Provider Intermed (11-20 min) Non-Physician Phone Call To Pt/Provider Intermed (11-20 min) [id number] 04/04/2014 [facility] Non-Physician Phone Call To Pt/Provider Intermed (11-20 min) Non-Physician Phone Call To Pt/Provider Intermed (11-20 min) [id number] 01/16/2014 ISAIAH MENENDEZ [facility] Social History Combined list of available smoking, tobacco, and other social history from Department of Defense and Veterans Affairs facilities. Social History Type Response Date Comment Sourc e This section is an empty social history section. [facility]
[2025-05-27 17:39] VITALS: BP 140/83; PULSE 104; RESP 18; TEMP 37.2; O2SAT 97; BMI 32.3
--- NOTE | 2025-05-27 18:04 | ED_ITS ---
HPI - General Adult General Chief complaint: Cough Stated complaint: Feeling generally unwell Time Seen by Provider: 05/27/25 17:32 History of Present Illness HPI narrative: This 39-year-old female comes in with report of cough and congestion for the past 3 days. She states that she felt warm but did not measure a temperature. She has been using [id number] medicines but is not getting much better. She does arrive here with normal vital signs. Related Data Previous Rx's ?Medication ?Instructions ?Recorded trazodone 100 mg tablet 50 - 150 mg (0.5 - 1.5 x 100 mg) 11/11/23 PO QHS PRN sleep #45 tabs bupropion HCl 150 mg 24 hr tablet, 150 mg PO QAM #90 t abs 06/16/24 extended release (Wellbutrin XL) albuterol sulfate 90 mcg/actuation 2 puff inhalation Q 4-6H PRN 11/09/24 aerosol inhaler shortness of breath or wheez ing #6.7 grams lorazepam 1 mg tablet 0.5 - 1 mg (0.5 - 1 x 1 mg) PO 01/23/25 QDAY PRN anxiety #30 tabs tizanidine 4 mg capsule 4 mg PO BID PRN muscle spast icity 01/23/25 #30 caps duloxetine 60 mg capsule,delayed 60 mg PO QDAY #90 cap s 04/25/25 release diclofenac sodium 75 mg 75 mg PO BID #180 tabs 04/26 tablet,delayed release Allergies Allergy/AdvReac Type Severity Reaction Status Date / Time zolpidem (From Ambien) Allergy Intermediate Itching Verified 05/27/25 17:44 Review of Systems Status of ROS: Reports: 10 or more systems reviewed and unremarkable except as noted in History and below Narrative: Constitutional: No fevers, no weight gain or loss. Eyes: No discharge. No vision changes. HENT: No ear pain. Mild sore throat related to coughing. Cardiovascular: No chest pain, no palpitations. Respiratory: No shortness of breath, no wheezes. She reports a cough. Gastrointestinal: No abdominal pain, no vomiting, no diarrhea. Genitourinary: No dysuria, no hematuria. Musculoskeletal: Normal range of motion. Skin: No rashes, no pruritis. Neurological: No dizziness, weakness, sensory change, speech change. Endo/Heme/Allergies: No bruising or bleeding. No polydipsia. Pysch: no suicidality, no anxiety, no insomnia. All other systems reviewed and are negative. PFSH PFSH Medical History Generalized anxiety disorder ?F41.1 - Generalized anxiety disorder (ICD-10) Major depression, recurrent ?F33.9 - Major depressive disorder, recurrent, unspecified (ICD-10) Asthma ?J45.909 - Unspecified asthma, uncomplicated (ICD-10) Nicotine dependence (12/30/18) ?F17.200 - Nicotine dependence, unspecified, uncomplicated (ICD-10) Insomnia ?G47.00 - Insomnia, unspecified (ICD-10) Constipation ?K59.00 - Constipation, unspecified (ICD-10) Borderline personality disorder (11/24/18) ?F60.3 - Borderline personality disorder (ICD-10) Alcohol dependence in remission (12/30/18) ?F10.21 - Alcohol dependence, in remission (ICD-10) Surgical History Status post laparoscopic hysterectomy (12/2019) ?Z90.710 - Acquired absence of both cervix and uterus (ICD-10) History of tubal ligation (05/2013) ?Z98.51 - Tubal ligation status (ICD-10) History of appendectomy (02/2019) ?Z90.49 - Acquired absence of other specified parts of digestive tract (ICD- 10) Family History Maternal Grandfather Stroke Heart disease Father Heart disease Social History Narrative: single, 2 kids, smoker, social ETOH, [employer] Problems where you live: no known problems In the past 12 months, utilities in danger of being shut off: yes In past 12 months, lack of transportation kept you from medical appts, meetings, work, or getting things needed for daily living: no In the past 12 mos, have been you worried that your food would run out before you had money to buy more?: often true In the past 12 mos, the food you bought just didn't last and you didn't have money to buy more?: sometimes true Smoking Status: Never smoker Do you use any of these nicotine containing products: None Second hand tobacco smoke exposure: No How often do you have a drink containing alcohol: never How often do you have six or more drinks on one occasion: Never AUDIT-C Alcohol total score: 0 Non-prescribed substance use: denies use How often does anyone, including family, friends and others, physically hurt you : never How often does anyone, including family, friends and others, insult or talk down to you: sometimes How often does anyone, including family, friends and others, threaten you with harm: never How often does anyone, including family, friends and others, scream or curse at you: rarely service: No Health Related Social Needs: food insecurity (Z59.41) and Other personal risk factors, not elsewhere classified (Z91.89) Exam Narrative: Exam Narrative: Constitutional: Well-developed, well-nourished, no acute distress. HEENT: Normocephalic, atraumatic. Neck: Normal range of motion. Nontender. Supple. Heart: Regular. No murmurs. Normal rate. Intact distal pulses. Lungs: Clear to auscultation. No chest discomfort. No wheezes, rhonchi, or rales. Abdomen: Normal bowel sounds. Nontender. No rebound tenderness. Genitalia: Deferred. Back: No midline tenderness. Normal range of motion. Extremities: Normal range of motion. No injury. Skin: Intact. No rash. Warm. No erythema or pallor. Neurologic: No altered sensation. No weakness. Alert and oriented. Psychiatric: No suicidality. No anxiety or depression. No insomnia. Nursing notes and vitals signs are reviewed. Const: Vital Signs, click to edit/add: Vital Signs - 24 hr 05/27/25 17:39 Temperature 98.9 F Pulse Rate [Right Pulse Oximeter] 104 H Respiratory Rate 18 Blood Pressure [Ri ght Upper Arm] 140/83 H Pulse Oximetry 97 Oxygen Delivery Me thod Room Air Course Vital Signs Vital signs: Initial Vital Signs Temperature 98.9 F 05/27/25 17:39 Temperature Source Temporal Artery Scan 05/27/25 17:39 Pulse Rate 104 H 05/27/25 17:39 Pulse Rhythm Regular 05/27/25 17:39 Pulse Strength 3+ Normal 05/27/25 17:39 Respiratory Rate 18 05/27/25 17:39 Blood Pressure 140/83 H 05/27/25 17:39 Blood Pressure Mean 102 05/27/25 17:39 Blood Pressure Position Sitting 05/27/25 17:39 Pulse Oximetry 97 05/27/25 17:39 Oxygen Delivery Method Room Air 05/27/25 17:39 Vital Signs Temperature 98.9 F 05/27/25 17:39 Pulse Rate 104 H 05/27/25 17:39 Respiratory Rate 18 05/27/25 17:39 Blood Pressure 140/83 H 05/27/25 17:39 Pulse Oximetry 97 05/27/25 17:39 Oxygen Delivery Method Room Air 05/27/25 17:39 Temperature 98.9 F 05/27/25 17:39 Pulse Rate 104 H 05/27/25 17:39 Respiratory Rate 18 05/27/25 17:39 Blood Pressure 140/83 H 05/27/25 17:39 Pulse Oximetry 97 05/27/25 17:39 Oxygen Delivery Method Room Air 05/27/25 17:39 Medications Administered Medications: Discontinued Medications Generic Name Dose Route Start Last Admin Trade Name Elginq PRN Reason Stop Dose Admin Dexamethasone 10 mg 05/27/25 18:04 05/27/25 18:44 Dexamethasone 10 Mg/Ml Inj PO 05/27/25 18:05 10 mg ONCE ONE Administration Medical Decision Making MDM Narrative Medical decision making narrative: This patient comes in reporting upper respiratory symptoms for the past 3 days. A nasal pharyngeal swab is obtained and returns negative for viruses tested. The patient's exam is reassuring. She did receive an oral dose of dexamethasone 10 mg. I also provided a prescription for some tablets of Tylenol 3 for further symptomatic relief. She also received a return to work note. Lab Data Labs: Lab Results 05/27/25 Range/Units 17:45 SARS-CoV-2 (PCR) Negative SARS-CoV-2 (Negative) Influenza Type A (PCR) Negative PCR FLU A (Negative) Influenza Type B (PCR) Negative PCR FLU B (Negative) RSV (PCR) Negative PCR RSV (Negative) Discharge Plan Discharge Clinical Impression: Acute upper respiratory infection Patient Disposition: Home, Self-Care Condition: Stable Additional Instructions: Use [id number] medicines as needed and directed and use prescription medicine also as directed. Follow up with MD or return if worsening. Prescriptions: No Action lorazepam 1 mg tablet 0.5 - 1 mg PO QDAY PRN (Reason: anxiety) Qty: 30 1RF tizanidine 4 mg capsule 4 mg PO BID PRN (Reason: muscle spasticity) Qty: 30 1RF trazodone 100 mg tablet 50 - 150 mg PO QHS PRN (Reason: sleep) Qty: 45 5RF bupropion HCl [Wellbutrin XL] 150 mg tablet extended release 24 hr 150 mg PO QAM Qty: 90 1RF albuterol sulfate 90 mcg/actuation HFA aerosol inhaler 2 puff inhalation Q4-6H PRN (Reason: shortness of breath or wheezing) Qty: 6.7 0RF duloxetine 60 mg capsule,delayed release(DR/EC) 60 mg PO QDAY Qty: 90 0RF diclofenac sodium 75 mg tablet,delayed release (DR/EC) 75 mg PO BID Qty: 180 1RF Follow Up/Referrals: Jose Angel Glover MD [Primary Care Provider, Family Practice] Stand Alone Forms: [employer] Info Instructions
[2025-05-27 18:39] LABS: PCR FLU A Negative PCR FLU A (Negative); PCR FLU B Negative PCR FLU B (Negative); PCR RSV Negative PCR RSV (Negative); SARS PCR* Negative SARS-CoV-2 (Negative)
== END 2025-05-27 19:05 | disposition home or self-care (01) ==
LOC: ED 18:11
PROVIDERS: Emergency Provider Emergency Medicine Emergency Medical Services; PCP Family Medicine
DX: J06.9 Acute upper respiratory infection, unspecified (principal)
CPT/HCPCS: 87631; 99283; 99284; J1100